=== PATIENT | female | born 1950 | race Caucasian/White ===

== ENCOUNTER 2021-12-09 09:38 | Day surgery (SDC) | payer MEDICARE, BC, SELFPAY ==
[2021-12-05 14:24] VITALS: BMI 34.9
--- NOTE | 2021-12-06 14:07 | HO.ANESPROP2 ---
Documented by User: Alanis Basilio NP 12/06/21 14:08 HPI - Anesthesia Eval Consult details Narrative: 71yo F for Right Cataract Extraction IOL Insertion PCP cleared No previous cataract on record [facility] Past Medical History Medical History (Updated 12/05/21 @ 14:27 by Vane Hernadez, SHANA) Adrenal failure Anxiety Arthritis Back pain Cataract Diabetes Elevated cholesterol Fracture of left acetabulum with routine healing GERD (gastroesophageal reflux disease) History of blood transfusion HTN (hypertension) Hx of deep venous thrombosis Hx of recurrent pneumonia TBI (traumatic brain injury) Uses roller walker Weight loss, non-intentional Surgical History Surgical History (Updated 12/05/21 @ 14:23 by Vane Hernadez, SHANA) Hx of appendectomy Hx of cholecystectomy Status post endometrial ablation Social History Social History Are you a primary home care scheduler to a significant other at home: No Do you presently have visiting nurse or other home services: No Patient Tobacco Use Status: Never used Tobacco Have you been hit, kicked, punched, or otherwise hurt by someone within the past year? If so, by whom?: No Are you DNR?: No Advance Directives: No Advance Directives Information Provided: Yes Advance Directives on File: No Recently lost weight without trying: Yes How much weight loss: 34pounds or more Eating poorly because of decreased appetite: No Nutrition screen score: 6 Nutrition Risks: No Nutritional Risk Meds Allergies Allergy/AdvReac Type Severity Reaction Status Date / Time Sulfa (Sulfonamide Allergy Intermediate Swelling Verified 12/04/21 16:31 Antibiotics) Home Medications Medication Instructions Recorded Confirmed Last Taken Type albuterol sulfate 90 mcg/actuation 2 puff INHALATION Q4-6H PRN 12/04/21 12/05/21 Unknown History aerosol inhaler cyclobenzaprine 10 mg tablet 1 tab PO BID PRN 12/04/21 12/04/21 Unknown History fluconazole 150 mg tablet 1 tab PO ONCE 12/04/21 12/04/21 Unknown History fludrocortisone 0.1 mg tablet 0.1 tab PO DAILY 12/04/21 12/05/21 Unknown History hydrocortisone 10 mg tablet 2 tab PO BID 12/04/21 12/04/21 Unknown History liraglutide 0.6 mg/0.1 mL (18 mg/3 1.2 mg SUBCUT DAILY 12/04/21 12/04/21 Unknown History mL) subcutaneous pen injector (Victoza 3-Wil) lisinopril 5 mg tablet 1 tab PO DAILY 12/04/21 12/04/21 Unknown History lorazepam 0.5 mg tablet 1 tab PO DAILY PRN 12/04/21 12/04/21 Unknown History metformin 500 mg tablet,extended 1 tab PO BID 12/04/21 12/04/21 Unknown History release 24 hr omeprazole 40 mg capsule,delayed 1 cap PO DAILY 12/04/21 12/04/21 Unknown History release rosuvastatin 20 mg tablet 1 tab PO BEDTIME 12/04/21 12/04/21 Unknown History sertraline 100 mg tablet 1 tab PO DAILY 12/04/21 12/04/21 Unknown History Exam Exam Date and Time: December 06, 2021 1407 Height,Weight and Vital Signs: Height 5 ft 4.5 in Weight 93.621 kg Assessment and Plan Assessment Anesthesia Assessment: Chart Reviewed Documented by User: Yong Chaudhari MD 12/09/21 11:24 [facility] Past Medical History Medical History (Updated 12/05/21 @ 14:27 by Vane Hernadez, SHANA) Adrenal failure Anxiety Arthritis Back pain Cataract Diabetes Elevated cholesterol Fracture of left acetabulum with routine healing GERD (gastroesophageal reflux disease) History of blood transfusion HTN (hypertension) Hx of deep venous thrombosis Hx of recurrent pneumonia TBI (traumatic brain injury) Uses roller walker Weight loss, non-intentional Family History Family history of problems with anesthesia: No Surgical History Surgical History (Updated 12/05/21 @ 14:23 by Vane Hernadez RN) Hx of appendectomy Hx of cholecystectomy Status post endometrial ablation History of Problems with Anesthesia: No Social History Social History Are you a primary home care scheduler to a significant other at home: No Do you presently have visiting nurse or other home services: No Patient Tobacco Use Status: Never used Tobacco Have you been hit, kicked, punched, or otherwise hurt by someone within the past year? If so, by whom?: No Are you DNR?: No Advance Directives: No Advance Directives Information Provided: Yes Advance Directives on File: No Recently lost weight without trying: Yes How much weight loss: 34pounds or more Eating poorly because of decreased appetite: No Nutrition screen score: 6 Nutrition Risks: No Nutritional Risk Meds Allergies Allergy/AdvReac Type Severity Reaction Status Date / Time Sulfa (Sulfonamide Allergy Intermediate Swelling Verified 12/04/21 16:31 Antibiotics) Home Medications Medication Instructions Recorded Confirmed Last Taken Type albuterol sulfate 90 mcg/actuation 2 puff INHALATION Q4-6H PRN 12/04/21 12/05/21 Unknown History aerosol inhaler cyclobenzaprine 10 mg tablet 1 tab PO BID PRN 12/04/21 12/04/21 Unknown History fluconazole 150 mg tablet 1 tab PO ONCE 12/04/21 12/04/21 Unknown History fludrocortisone 0.1 mg tablet 0.1 tab PO DAILY 12/04/21 12/05/21 Unknown History hydrocortisone 10 mg tablet 2 tab PO BID 12/04/21 12/04/21 Unknown History liraglutide 0.6 mg/0.1 mL (18 mg/3 1.2 mg SUBCUT DAILY 12/04/21 12/04/21 Unknown History mL) subcutaneous pen injector ([employer] 3-Wil) lisinopril 5 mg tablet 1 tab PO DAILY 12/04/21 12/04/21 Unknown History lorazepam 0.5 mg tablet 1 tab PO DAILY PRN 12/04/21 12/04/21 Unknown History metformin 500 mg tablet,extended 1 tab PO BID 12/04/21 12/04/21 Unknown History release 24 hr omeprazole 40 mg capsule,delayed 1 cap PO DAILY 12/04/21 12/04/21 Unknown History release rosuvastatin 20 mg tablet 1 tab PO BEDTIME 12/04/21 12/04/21 Unknown History sertraline 100 mg tablet 1 tab PO DAILY 12/04/21 12/04/21 Unknown History Exam Airway Mallampati Class: III TM Dist: >3cm Neck ROM: Full Loose/Missing/Broken Teeth: No Heart: [id number] Lungs: cta b/l Assessment and Plan Assessment Anesthesia Assessment: Anesthesia Plan Discussed Final Anesthetic Review Family History of Problems with Anesthesia: No History of Problems with Anesthesia: No NPO: Yes ASA Class: III Final Preanesthetic Review: No Changes in Pt Med Stat, Meds/Allgs Chart Reviewed, Consent Obtained/Reviewed and Anes Risks/Benef Reviewed Patient Risk: Intermediate Procedure Risk: Low Assessment/Block/Sedation in SS: Assess/Block/Sedation-SS Anesthetic Plan Anesthetic Plan: MAC: and Agree w/ Assess. and Plan Disposition: Standard PACU
--- NOTE | 2021-12-06 16:47 | MHC.SHP ---
Pre-Procedural Eval Section A Date of Service: 12/06/21 The patient is an INPATIENT: No Changes since office visit: No Cold of Flu in the past 2 weeks, No New Medical Problems, No Changes in Medication and No Patient answered all questions The History & Physical has been completed within 30 days and I have reviewed it.: Yes Section B Chief Complaint: cataratc Allergies: Allergies Allergy/AdvReac Type Severity Reaction Status Date / Time Sulfa (Sulfonamide Allergy Intermediate Swelling Verified 12/04/21 16:31 Antibiotics) Plan Diagnosis/Plan: Unchanged I have reviewed the history and physical and performed a pertinent physical examination on my patient. No changes have occurred unless specified.
[2021-12-09 11:06] VITALS: BP 126/82; PULSE 97; RESP 18; TEMP 37.1; O2SAT 98
[2021-12-09 11:25] VITALS: BP 126/82; PULSE 97; RESP 18; TEMP 37.1; O2SAT 98
[2021-12-09] MEDS: Tetracaine HCl/PF 0.5% Oph Sol 4 ML DROPS 1 DROP EYE-RIGHT (11:27)
[2021-12-09] MEDS: Phenylephrine HCL 2.5% Oph SoL 2 ML BOTTLE 1 DROP EYE-RIGHT ×3 (11:28→11:35)
[2021-12-09] MEDS: Tropicamide 1 % Ophth Sol 3 ML BTL 1 DROP EYE-RIGHT ×3 (11:28→11:35)
[2021-12-09 11:32] LABS: Glucose, Whole Blood 308 mg/dL (60-115)
[2021-12-09] MEDS: Lactated Ringers 500 ML 50 ML IV (11:37)
--- NOTE | 2021-12-09 12:18 | HO.PNOPHT ---
Ophthalmology Procedure Procedure Date of Service: 12/09/21 Ophthalmology Viscoelastic: Healharpreet Duet Dual Pack Pro Ophthalmology Lenses: TECNIS [id number] (19.5) Procedure Notes: PREOPERATIVE DIAGNOSIS: Decreased visual acuity right eye secondary to cataract POSTOPERATIVE DIAGNOSIS: Same PROCEDURE: Right cataract extraction with intraocular lens insertion SURGEON: Teofilo Zapien M.D. ANESTHESIA: Topical/MAC ESTIMATED BLOOD LOSS: None COMPLICATIONS: None After obtaining informed consent, the patient was brought to the operating room suite and placed in the supine position. After adequate sedation per anesthesia, topical drops of Tetracaine were given to the right eye. The eye was then prepped and draped in the usual sterile fashion. The operating room microscope was then positioned over the operative eye and a lid speculum placed. A paracentesis was created. Viscoelastic was then instilled into the anterior chamber. A three plane incision was then created temporally, utilizing a 2.85 mm keratome. Capsulotomy forceps were then utilized to create a circular tear capsulotomy. Hydrodissection and hydrodelineation were carried out until adequate mobilization of the nucleus occurred. Phacoemulsification was then utilized to remove the dense central nucleus followed by removal of the cortical material utilizing the automated aspiration irrigation unit. Viscoelastic was instilled into the posterior capsular bag followed by placement of a posterior chamber intraocular lens without difficulty. The residual Viscoelastic was then removed utilizing the automated IA machine. The wound was checked and found to be watertight. The patient tolerated the procedure well and the lid speculum was removed. Intracameral injection of Vigamox 0.1 mL followed by a subtenon injection of Kenalog-40 0.2 mL were administered. The patient will be seen in the a.m.
[2021-12-09 12:47] VITALS: BP 116/70; PULSE 93; RESP 17; TEMP 36.9; O2SAT 97
== END 2021-12-09 13:00 | disposition home or self-care (01) ==
PROVIDERS: PCP Internal Medicine; Visit Provider Ophthalmology
PROC: (CPT 66985; principal; 2021-12-09 12:40)
DX: H25.11 Age-related nuclear cataract, right eye (principal); H43.21 Crystalline deposits in vitreous body, right eye; H40.053 Ocular hypertension, bilateral; H18.503 Unspecified hereditary corneal dystrophies, bilateral; E11.9 Type 2 diabetes mellitus without complications; E78.00 Pure hypercholesterolemia, unspecified; E27.9 Disorder of adrenal gland, unspecified; M32.9 Systemic lupus erythematosus, unspecified; Z87.01 Personal history of pneumonia (recurrent); Z79.52 Long term (current) use of systemic steroids; Z79.84 Long term (current) use of oral hypoglycemic drugs; Z79.899 Other long term (current) drug therapy; Z88.2 Allergy status to sulfonamides; Z88.8 Allergy status to other drugs, medicaments and biological substances
CPT/HCPCS: 66984; 82947; J2250; J3300; V2632

== ENCOUNTER 2021-12-23 07:34 | Day surgery (SDC) | payer MEDICARE, BC, SELFPAY ==
[2021-12-05 14:31] VITALS: BMI 34.9
--- NOTE | 2021-12-20 08:10 | MHC.SHP ---
Pre-Procedural Eval Section A Date of Service: 12/20/21 The patient is an INPATIENT: No Changes since office visit: No Cold of Flu in the past 2 weeks, No New Medical Problems, No Changes in Medication and No Patient answered all questions The History & Physical has been completed within 30 days and I have reviewed it.: Yes Section B Chief Complaint: cataract Allergies: Allergies Allergy/AdvReac Type Severity Reaction Status Date / Time Sulfa (Sulfonamide Allergy Intermediate Swelling Verified 12/04/21 16:31 Antibiotics) gabapentin Allergy Unknown Unknown Verified 12/09/21 12:13 pseudoephedrine Allergy Unknown Unknown Verified 12/09/21 12:12 [From Sudafed] diclofenac Allergy Unknown Verified 12/09/21 12:15 metaxalone Allergy Unknown Verified 12/09/21 12:17 Plan Diagnosis/Plan: Unchanged I have reviewed the history and physical and performed a pertinent physical examination on my patient. No changes have occurred unless specified.
--- NOTE | 2021-12-20 09:21 | HO.ANESPROP2 ---
Documented by User: Alanis Basilio NP 12/20/21 09:27 HPI - Anesthesia Eval Consult details Narrative: 71yo F for Left Cataract Extraction IOL Insertion PCP cleared Right eye 12/09/21 with MAC: Midaz 2 PMFSH Past Medical History Medical History Adrenal failure Anxiety Arthritis Back pain Cataract Diabetes Elevated cholesterol Fracture of left acetabulum with routine healing GERD (gastroesophageal reflux disease) History of blood transfusion HTN (hypertension) Hx of deep venous thrombosis Hx of recurrent pneumonia TBI (traumatic brain injury) Uses roller walker Weight loss, non-intentional Family History Family history of problems with anesthesia: No Surgical History Surgical History Hx of appendectomy Hx of cholecystectomy Status post endometrial ablation History of Problems with Anesthesia: No Social History Social History Are you a primary body care manager to a significant other at home: No Do you presently have visiting nurse or other home services: No Patient Tobacco Use Status: Never used Tobacco Have you been hit, kicked, punched, or otherwise hurt by someone within the past year? If so, by whom?: No Are you DNR?: No Advance Directives: No Advance Directives Information Provided: Yes Advance Directives on File: No Recently lost weight without trying: Yes How much weight loss: 34pounds or more Eating poorly because of decreased appetite: No Nutrition screen score: 6 Meds Allergies Allergy/AdvReac Type Severity Reaction Status Date / Time Sulfa (Sulfonamide Allergy Intermediate Swelling Verified 12/04/21 16:31 Antibiotics) gabapentin Allergy Unknown Unknown Verified 12/09/21 12:13 pseudoephedrine Allergy Unknown Unknown Verified 12/09/21 12:12 [From Sudafed] diclofenac Allergy Unknown Verified 12/09/21 12:15 metaxalone Allergy Unknown Verified 12/09/21 12:17 Home Medications Medication Instructions Recorded Confirmed Last Taken Type albuterol sulfate 90 mcg/actuation 2 puff INHALATION Q4-6H PRN 12/04/21 12/05/21 Unknown History aerosol inhaler cyclobenzaprine 10 mg tablet 1 tab PO BID PRN 12/04/21 12/04/21 Unknown History fluconazole 150 mg tablet 1 tab PO ONCE 12/04/21 12/04/21 Unknown History fludrocortisone 0.1 mg tablet 0.1 tab PO DAILY 12/04/21 12/05/21 Unknown History hydrocortisone 10 mg tablet 2 tab PO BID 12/04/21 12/04/21 Unknown History liraglutide 0.6 mg/0.1 mL (18 mg/3 1.2 mg SUBCUT DAILY 12/04/21 12/04/21 Unknown History mL) subcutaneous pen injector ([employer]za 3-Wil) lisinopril 5 mg tablet 1 tab PO DAILY 12/04/21 12/04/21 Unknown History lorazepam 0.5 mg tablet 1 tab PO DAILY PRN 12/04/21 12/04/21 Unknown History metformin 500 mg tablet,extended 1 tab PO BID 12/04/21 12/04/21 Unknown History release 24 hr omeprazole 40 mg capsule,delayed 1 cap PO DAILY 12/04/21 12/04/21 Unknown History release rosuvastatin 20 mg tablet 1 tab PO BEDTIME 12/04/21 12/04/21 Unknown History sertraline 100 mg tablet 1 tab PO DAILY 12/04/21 12/09/21 12/09/21 History Exam Exam Date and Time: December 20, [id number] Height,Weight and Vital Signs: Height 5 ft 4.5 in Weight 93.621 kg Assessment and Plan Assessment Anesthesia Assessment: Chart Reviewed Final Anesthetic Review Family History of Problems with Anesthesia: No History of Problems with Anesthesia: No Documented by User: Kely Rojas MD 12/23/21 09:09 [facility] Past Medical History Medical History Adrenal failure Anxiety Arthritis Back pain Cataract Diabetes Elevated cholesterol Fracture of left acetabulum with routine healing GERD (gastroesophageal reflux disease) History of blood transfusion HTN (hypertension) Hx of deep venous thrombosis Hx of recurrent pneumonia TBI (traumatic brain injury) Uses roller walker Weight loss, non-intentional Surgical History Surgical History Hx of appendectomy Hx of cholecystectomy Status post endometrial ablation Social History Social History Are you a primary body care manager to a significant other at home: No Do you presently have visiting nurse or other home services: No Patient Tobacco Use Status: Never used Tobacco Have you been hit, kicked, punched, or otherwise hurt by someone within the past year? If so, by whom?: No Are you DNR?: No Advance Directives: No Advance Directives Information Provided: Yes Advance Directives on File: No Recently lost weight without trying: Yes How much weight loss: 34pounds or more Eating poorly because of decreased appetite: No Nutrition screen score: 6 Meds Allergies Allergy/AdvReac Type Severity Reaction Status Date / Time Sulfa (Sulfonamide Allergy Intermediate Swelling Verified 12/04/21 16:31 Antibiotics) gabapentin Allergy Unknown Unknown Verified 12/09/21 12:13 pseudoephedrine Allergy Unknown Unknown Verified 12/09/21 12:12 [From [facility]] diclofenac Allergy Unknown Verified 12/09/21 12:15 metaxalone Allergy Unknown Verified 12/09/21 12:17 Home Medications Medication Instructions Recorded Confirmed Last Taken Type albuterol sulfate 90 mcg/actuation 2 puff INHALATION Q4-6H PRN 12/04/21 12/05/21 Unknown History aerosol inhaler cyclobenzaprine 10 mg tablet 1 tab PO BID PRN 12/04/21 12/04/21 Unknown History fluconazole 150 mg tablet 1 tab PO ONCE 12/04/21 12/04/21 Unknown History fludrocortisone 0.1 mg tablet 0.1 tab PO DAILY 12/04/21 12/05/21 Unknown History hydrocortisone 10 mg tablet 2 tab PO BID 12/04/21 12/04/21 Unknown History liraglutide 0.6 mg/0.1 mL (18 mg/3 1.2 mg SUBCUT DAILY 12/04/21 12/04/21 Unknown History mL) subcutaneous pen injector (Victoza 3-Wil) lisinopril 5 mg tablet 1 tab PO DAILY 12/04/21 12/04/21 Unknown History lorazepam 0.5 mg tablet 1 tab PO DAILY PRN 12/04/21 12/04/21 Unknown History metformin 500 mg tablet,extended 1 tab PO BID 12/04/21 12/04/21 Unknown History release 24 hr omeprazole 40 mg capsule,delayed 1 cap PO DAILY 12/04/21 12/04/21 Unknown History release rosuvastatin 20 mg tablet 1 tab PO BEDTIME 12/04/21 12/04/21 Unknown History sertraline 100 mg tablet 1 tab PO DAILY 12/04/21 12/09/21 12/09/21 History Exam Airway Mallampati Class: II TM Dist: >3cm Neck ROM: Full Loose/Missing/Broken Teeth: No Heart: RRR Lungs: CTA Assessment and Plan Assessment Anesthesia Assessment: Anesthesia Plan Discussed Final Anesthetic Review NPO: Yes ASA Class: III Final Preanesthetic Review: Meds/Allgs Chart Reviewed, Consent Obtained/Reviewed and Anes Risks/Benef Reviewed Patient Risk: Intermediate Procedure Risk: Low Anesthetic Plan Anesthetic Plan: MAC: Disposition: Standard PACU
[2021-12-23 08:23] VITALS: BP 153/105; PULSE 100; RESP 16; TEMP 36.3; O2SAT 99
[2021-12-23 08:27] LABS: Glucose, Whole Blood 333 mg/dL (60-115)
[2021-12-23] MEDS: Lactated Ringers 500 ML 50 ML IV (08:37)
[2021-12-23] MEDS: Tetracaine HCl/PF 0.5% Oph Sol 4 ML DROPS 1 DROP EYE-LEFT (08:38)
[2021-12-23] MEDS: Tropicamide 1 % Ophth Sol 3 ML BTL 1 DROP EYE-LEFT ×3 (08:40→08:49)
[2021-12-23] MEDS: Phenylephrine HCL 2.5% Oph SoL 2 ML BOTTLE 1 DROP EYE-LEFT ×3 (08:42→08:51)
[2021-12-23] MEDS: Insulin Lispro 100 UNIT/ML 3 ML VIAL 10 UNIT SUBCUT (09:03)
--- NOTE | 2021-12-23 09:26 | HO.PNOPHT ---
Ophthalmology Procedure Procedure Date of Service: 12/23/21 Ophthalmology Viscoelastic: Healharpreet Trevinot Dual Pack Pro Ophthalmology Lenses: TECBRIE [id number] (22) Procedure Notes: PREOPERATIVE DIAGNOSIS: Decreased visual acuity left eye secondary to cataract POSTOPERATIVE DIAGNOSIS: Same PROCEDURE: Left cataract extraction with intraocular lens insertion SURGEON: Teofilo Zapien M.D. ANESTHESIA: Topical/MAC ESTIMATED BLOOD LOSS: None COMPLICATIONS: None After obtaining informed consent, the patient was brought to the operation room suite and placed in the supine position. After adequate sedation per anesthesia, topical drops of Tetracaine were given to the left eye. The eye was then prepped and draped in the usual sterile fashion. The operating room microscope was then positioned over the operative eye and a lid speculum placed. A paracentesis was created. Viscoelastic was then instilled into the anterior chamber. A three plane incision was then created temporally, utilizing a 2.85 mm keratome. Capsulotomy forceps were then utilized to create a circular tear capsulotomy. Hydrodissection and hydrodelineation were carried out until adequate mobilization of the nucleus occurred. Phacoemulsification was then utilized to remove the dense central nucleus followed by removal of the cortical material utilizing the automated aspiration irrigation unit. Viscoat elastic was instilled into the posterior capsular bag followed by placement of a posterior chamber intraocular lens without difficulty. The residual Viscoat elastic was then removed utilizing the automated IA machine. The wound was check and found to be watertight. The patient tolerated the procedure well and the lid speculum was removed. Intracameral injection of Vigamox 0.1 mL followed by a subtenon injection of Kenalog-40 0.2 mL were administered. The patient will be seen in the a.m.
[2021-12-23 09:51] VITALS: BP 149/94; PULSE 93; RESP 16; TEMP 36.7; O2SAT 94
[2021-12-23 10:14] LABS: Glucose, Whole Blood 314 mg/dL (60-115)
== END 2021-12-23 10:12 | disposition home or self-care (01) ==
PROVIDERS: PCP Internal Medicine; Visit Provider Ophthalmology
PROC: (CPT 66985; principal; 2021-12-23 09:30)
DX: H25.12 Age-related nuclear cataract, left eye (principal); H54.7 Unspecified visual loss; H40.053 Ocular hypertension, bilateral; H18.503 Unspecified hereditary corneal dystrophies, bilateral; I10 Essential (primary) hypertension; E27.49 Other adrenocortical insufficiency; E78.00 Pure hypercholesterolemia, unspecified; E11.9 Type 2 diabetes mellitus without complications; Z79.84 Long term (current) use of oral hypoglycemic drugs; Z79.52 Long term (current) use of systemic steroids; Z79.899 Other long term (current) drug therapy; Z88.2 Allergy status to sulfonamides; Z88.8 Allergy status to other drugs, medicaments and biological substances; Z87.891 Personal history of nicotine dependence
CPT/HCPCS: 66984; 82947; J2250; J3010; J3300; V2632